=== PATIENT | female | born 1985 | race Caucasian/White ===

== ENCOUNTER → 2024-05-30 10:58 | Outpatient (REF) | payer OTHER, SELFPAY | LOC: MRI 3T 10:58 | PROVIDERS: ATTENDING PHYSICIAN Podiatrist; FAMILY PHYSICIAN Family Medicine | DX: M84.374A Stress fracture, right foot, initial encounter for fracture (principal); M65.971 Unspecified synovitis and tenosynovitis, right ankle and foot | CPT/HCPCS: 73718 ==